=== PATIENT | female | born 1935 | race Caucasian/White ===

== ENCOUNTER 2020-07-28 12:20 | Inpatient (IN) | payer BC, OTHER ==
[2020-07-28] MEDS ORDERED: FAMOTIDINE 20 MG/50 ML IVPB 20 MG/50 ML MG IVPB ONE ×2 (13:12→13:46)
[2020-07-28] MEDS ORDERED: ONDANSETRON 4 MG/2 ML VIAL IVPUSH ONE (13:12)
[2020-07-28] MEDS ORDERED: ACETAMINOPHEN 1000 MG/100 ML VIAL (NON FORMULARY) IVPB ONE (13:13)
[2020-07-28] MEDS ORDERED: SODIUM CHLORIDE 0.9% 500 ML INFUS.BAG IV ONE (13:21)
[2020-07-28] MEDS ORDERED: DEXAMETHASONE SOD PHOSPHATE 10 MG/1 ML VIAL IVPUSH ONE (13:21)
[2020-07-28] MEDS ORDERED: ONDANSETRON 4 MG/2 ML VIAL ONE (13:46)
[2020-07-28] MEDS ORDERED: ACETAMINOPHEN INJECTION 100 ML IVPB ONE (13:46)
[2020-07-28] MEDS ORDERED: DEXAMETHASONE SOD PHOSPHATE 10 MG/1 ML VIAL ONE (13:46)
[2020-07-28 14:03] LABS: BASO % 0.4 % (0-2.0); HEMATOCRIT 36.8 % (32.4-45.2); HEMOGLOBIN 12.7 GM/dL (10.7-15.3); LYMPH % 15.9 % (8-40); MCH 29.9 pg (25.7-33.7); MCHC 34.5 g/dl (32.0-36.0); MEAN CELL VOLUME 86.8 fl (80-96); MEAN PLT VOLUME 8.5 fl (7.5-11.1); MONO % 10.8 % (3.8-10.2); NEUT % 72.9 % (42.8-82.8); PLATELET COUNT 156 K/MM3 (134-434); RBC 4.24 M/mm3 (3.60-5.2); RDW 13.8 % (11.6-15.6); WHITE BLOOD COUNT 3.6 K/mm3 (4.0-10.0)
[2020-07-28 14:08] LABS: VENOUS O2 SATURATION 34.3 % (70-80); VENOUS PCO2 38.8 mmHg (38-52); VENOUS PH 7.416 (7.310-7.410)
[2020-07-28 14:26] LABS: CHLORIDE 104 mmol/L (98-107); POTASSIUM 3.3 mmol/L (3.5-5.1); SODIUM 140 mmol/L (136-145)
[2020-07-28 14:27] LABS: INR 1.27 (0.83-1.09); PROTHROMBIN TIME (PATIENT) 15.5 SEC (9.7-13.0)
[2020-07-28 14:28] LABS: ACTIVATED PTT 31.3 SECONDS (25.2-36.5); CALCIUM 8.4 mg/dL (8.5-10.1)
[2020-07-28 14:29] LABS: ALBUMIN 3.5 g/dl (3.4-5.0); ANION GAP 11 MMOL/L (8-16); BLOOD UREA NITROGEN 17.5 mg/dL (7-18); CO2 25 mmol/L (21-32); GLUCOSE,RANDOM 99 mg/dL (74-106)
[2020-07-28 14:32] LABS: BILIRUBIN,DIRECT 0.2 mg/dL (0.0-0.2); CREATININE 0.9 mg/dL (0.55-1.3); SGOT/AST 26 U/L (15-37); SGPT/ALT 26 U/L (13-61)
[2020-07-28 14:33] LABS: BILIRUBIN,TOTAL 0.6 mg/dL (0.2-1); LDH 207 U/L (84-246); TOT PROT 6.6 g/dl (6.4-8.2)
[2020-07-28 14:35] LABS: ALK PHOS 58 U/L (45-117)
[2020-07-28] MEDS ORDERED: METOCLOPRAMIDE HCL INJECTION 10 MG/2 ML VIAL IVPB ONE (14:52)
[2020-07-28] MEDS ORDERED: POTASSIUM CHLORIDE ORAL LIQUID 20 MEQ/15 ML PO ONE (14:52)
[2020-07-28] MEDS ORDERED: METOCLOPRAMIDE HCL INJECTION 10 MG/2 ML VIAL ONE (14:55)
[2020-07-28 14:56] LABS: MAGNESIUM 1.9 mg/dL (1.8-2.4)
[2020-07-28] MEDS ORDERED: POTASSIUM CHLORIDE ORAL LIQUID 20 MEQ/15 ML ONE (14:56)
[2020-07-28 15:46] LABS: EPI CELLS >36 /uL (0-25.1); HYALINE CASTS 16 /uL (0-3.1); PH,URINE 5.5 (5.0-8.0); URINE APPEARANCE CLOUDY; URINE BACTERIA 1550 /uL (0-1359); URINE BILIRUBIN NEGATIVE (NEGATIVE); URINE COLOR DK YELLOW; URINE GLUCOSE (UA) NEGATIVE (NEGATIVE); URINE KETONE NEGATIVE (NEGATIVE); URINE LEUK ESTERASE 2+ (NEGATIVE); URINE NITRITE NEGATIVE (NEGATIVE); URINE PROTEIN 2+ (NEGATIVE); URINE RBC 32 /uL (0-23.9); URINE WBC 257 /uL (0-25.8)
[2020-07-28] MEDS ORDERED: ONDANSETRON 4 MG/2 ML VIAL IVPUSH PRN (22:04)
[2020-07-28] MEDS ORDERED: SODIUM CHLORIDE 0.9%/KCL 20 MEQ/1,000 ML INFUS.BAG IV SCH (22:15)
[2020-07-28] MEDS ORDERED: APIXABAN 2.5 MG TABLET ONE (22:16)
[2020-07-28] MEDS: APIXABAN 2.5 MG TABLET PO SCH (22:25)
[2020-07-29] MEDS ORDERED: ACETAMINOPHEN 325 MG TABLET (FP) PO PRN (08:58)
[2020-07-29 09:18] LABS: BASO % 0.2 % (0-2.0); HEMOGLOBIN 12.7 GM/dL (10.7-15.3); LYMPH % 17.5 % (8-40); MCH 30.3 pg (25.7-33.7); MCHC 34.3 g/dl (32.0-36.0); MEAN CELL VOLUME 88.4 fl (80-96); MEAN PLT VOLUME 8.9 fl (7.5-11.1); MONO % 15.8 % (3.8-10.2); NEUT % 66.5 % (42.8-82.8); PLATELET COUNT 144 K/MM3 (134-434); RBC 4.19 M/mm3 (3.60-5.2); RDW 13.7 % (11.6-15.6); WHITE BLOOD COUNT 2.6 K/mm3 (4.0-10.0)
[2020-07-29 09:25] LABS: POTASSIUM 3.7 mmol/L (3.5-5.1)
[2020-07-29 09:35] LABS: ALBUMIN 3.2 g/dl (3.4-5.0); BLOOD UREA NITROGEN 14.5 mg/dL (7-18); CALCIUM 8.1 mg/dL (8.5-10.1)
[2020-07-29 09:36] LABS: MAGNESIUM 2.1 mg/dL (1.8-2.4)
[2020-07-29 09:37] LABS: BILIRUBIN,TOTAL 0.7 mg/dL (0.2-1)
[2020-07-29 09:38] LABS: CREATININE 0.8 mg/dL (0.55-1.3)
[2020-07-29 09:39] LABS: TOT PROT 6.4 g/dl (6.4-8.2)
[2020-07-29] MEDS: APIXABAN 2.5 MG TABLET PO SCH ×2 (10:40→22:15)
[2020-07-29] MEDS: metoPROLOL SUCCINATE 25 MG TAB.SR.24H (FP) PO SCH (10:40)
[2020-07-29] MEDS: DEXAMETHASONE SOD PHOSPHATE 4 MG/1 ML VIAL IVPUSH SCH (10:40)
[2020-07-29] MEDS ORDERED: REMDESIVIR 200 MG in SODIUM CHLORIDE 210 ML IVPB ONE (16:00)
[2020-07-29] MEDS: FAMOTIDINE 20 MG/50 ML IVPB 20 MG/50 ML MG IVPB SCH (22:15)
[2020-07-29] MEDS: ATORVASTATIN CA 10 MG TABLET (FP) PO SCH (22:15)
[2020-07-30] MEDS: ACETAMINOPHEN 325 MG TABLET (FP) PO PRN (04:45)
[2020-07-30 09:20] LABS: BASO % 0.1 % (0-2.0); HEMATOCRIT 38.5 % (32.4-45.2); HEMOGLOBIN 13.3 GM/dL (10.7-15.3); LYMPH % 12.8 % (8-40); MCH 30.5 pg (25.7-33.7); MCHC 34.6 g/dl (32.0-36.0); MEAN CELL VOLUME 88.2 fl (80-96); MEAN PLT VOLUME 8.8 fl (7.5-11.1); NEUT % 81.1 % (42.8-82.8); PLATELET COUNT 185 K/MM3 (134-434); RBC 4.36 M/mm3 (3.60-5.2); RDW 14.1 % (11.6-15.6); WHITE BLOOD COUNT 8.6 K/mm3 (4.0-10.0)
[2020-07-30 09:31] LABS: POTASSIUM 3.5 mmol/L (3.5-5.1)
[2020-07-30 09:33] LABS: CALCIUM 8.6 mg/dL (8.5-10.1)
[2020-07-30 09:34] LABS: ALBUMIN 3.5 g/dl (3.4-5.0); BLOOD UREA NITROGEN 24.4 mg/dL (7-18)
[2020-07-30 09:38] LABS: BILIRUBIN,TOTAL 0.5 mg/dL (0.2-1); TOT PROT 6.6 g/dl (6.4-8.2)
[2020-07-30 09:41] LABS: PHOSPHOROUS 2.6 mg/dL (2.5-4.9)
[2020-07-30] MEDS: FAMOTIDINE 20 MG/50 ML IVPB 20 MG/50 ML MG IVPB SCH ×2 (10:52→21:10)
[2020-07-30] MEDS: DEXAMETHASONE SOD PHOSPHATE 4 MG/1 ML VIAL IVPUSH SCH (10:54)
[2020-07-30] MEDS: metoPROLOL SUCCINATE 25 MG TAB.SR.24H (FP) PO SCH (10:55)
[2020-07-30] MEDS: APIXABAN 2.5 MG TABLET PO SCH ×2 (10:55→21:22)
[2020-07-30] MEDS: REMDESIVIR 100 MG in SODIUM CHLORIDE 230 ML IVPB SCH (18:11)
[2020-07-30] MEDS ORDERED: cefTRIAXone SODIUM 1 GM VIAL ONE (20:37)
[2020-07-30] MEDS ORDERED: DEXTROSE 5%-WATER - 50 ML IVPB ONE (20:37)
[2020-07-30] MEDS: CEFTRIAXONE 1 GM in DEXTROSE 5%-WATER - 50 ML IVPB SCH (20:40)
[2020-07-30] MEDS: ATORVASTATIN CA 10 MG TABLET (FP) PO SCH (21:22)
[2020-07-31 09:40] LABS: POTASSIUM 3.6 mmol/L (3.5-5.1)
[2020-07-31 09:54] LABS: CALCIUM 7.8 mg/dL (8.5-10.1)
[2020-07-31 09:55] LABS: ALBUMIN 2.7 g/dl (3.4-5.0); BLOOD UREA NITROGEN 21.9 mg/dL (7-18)
[2020-07-31 09:57] LABS: BILIRUBIN,TOTAL 0.5 mg/dL (0.2-1)
[2020-07-31 09:58] LABS: CREATININE 0.7 mg/dL (0.55-1.3); TOT PROT 5.5 g/dl (6.4-8.2)
[2020-07-31] MEDS ORDERED: cefTRIAXone SODIUM 1 GM VIAL ONE (10:53)
[2020-07-31] MEDS ORDERED: DEXTROSE 5%-WATER - 50 ML IVPB ONE (10:53)
[2020-07-31] MEDS: APIXABAN 2.5 MG TABLET PO SCH ×2 (10:57→21:06)
[2020-07-31] MEDS: metoPROLOL SUCCINATE 25 MG TAB.SR.24H (FP) PO SCH (10:57)
[2020-07-31] MEDS: FAMOTIDINE 20 MG/50 ML IVPB 20 MG/50 ML MG IVPB SCH ×2 (10:58→21:06)
[2020-07-31] MEDS: CEFTRIAXONE 1 GM in DEXTROSE 5%-WATER - 50 ML IVPB SCH (10:58)
[2020-07-31] MEDS: DEXAMETHASONE SOD PHOSPHATE 4 MG/1 ML VIAL IVPUSH SCH (11:05)
[2020-07-31] MEDS: ACETAMINOPHEN 325 MG TABLET (FP) PO PRN (11:09)
[2020-07-31 16:40] VITALS: BMI 19.5
[2020-07-31] MEDS: REMDESIVIR 100 MG in SODIUM CHLORIDE 230 ML IVPB SCH (17:57)
[2020-07-31] MEDS: ATORVASTATIN CA 10 MG TABLET (FP) PO SCH (21:06)
[2020-08-01] MEDS ORDERED: cefTRIAXone SODIUM 1 GM VIAL ONE (09:23)
[2020-08-01] MEDS ORDERED: DEXTROSE 5%-WATER - 50 ML IVPB ONE (09:23)
[2020-08-01] MEDS: APIXABAN 2.5 MG TABLET PO SCH ×2 (09:59→21:41)
[2020-08-01] MEDS: DEXAMETHASONE SOD PHOSPHATE 4 MG/1 ML VIAL IVPUSH SCH (09:59)
[2020-08-01] MEDS: metoPROLOL SUCCINATE 25 MG TAB.SR.24H (FP) PO SCH (10:00)
[2020-08-01] MEDS: CEFTRIAXONE 1 GM in DEXTROSE 5%-WATER - 50 ML IVPB SCH (10:00)
[2020-08-01] MEDS: PANTOPRAZOLE 20 MG TABLET PO SCH (10:00)
[2020-08-01] MEDS: FAMOTIDINE 20 MG/50 ML IVPB 20 MG/50 ML MG IVPB SCH ×2 (11:08→21:41)
[2020-08-01] MEDS: REMDESIVIR 100 MG in SODIUM CHLORIDE 230 ML IVPB SCH (15:36)
[2020-08-01] MEDS: ATORVASTATIN CA 10 MG TABLET (FP) PO SCH (21:41)
[2020-08-02] MEDS ORDERED: cefTRIAXone SODIUM 1 GM VIAL ONE (09:59)
[2020-08-02] MEDS ORDERED: DEXTROSE 5%-WATER - 50 ML IVPB ONE (09:59)
[2020-08-02] MEDS: PANTOPRAZOLE 20 MG TABLET PO SCH (10:14)
[2020-08-02] MEDS: CEFTRIAXONE 1 GM in DEXTROSE 5%-WATER - 50 ML IVPB SCH (10:14)
[2020-08-02] MEDS: metoPROLOL SUCCINATE 25 MG TAB.SR.24H (FP) PO SCH (10:14)
[2020-08-02] MEDS: APIXABAN 2.5 MG TABLET PO SCH ×2 (10:14→21:27)
[2020-08-02] MEDS: DEXAMETHASONE SOD PHOSPHATE 4 MG/1 ML VIAL IVPUSH SCH (10:14)
[2020-08-02] MEDS: FAMOTIDINE 20 MG/50 ML IVPB 20 MG/50 ML MG IVPB SCH ×2 (12:55→21:27)
[2020-08-02] MEDS: REMDESIVIR 100 MG in SODIUM CHLORIDE 230 ML IVPB SCH (16:02)
[2020-08-02] MEDS: ATORVASTATIN CA 10 MG TABLET (FP) PO SCH (21:27)
[2020-08-03] MEDS ORDERED: cefTRIAXone SODIUM 1 GM VIAL ONE (10:16)
[2020-08-03] MEDS ORDERED: DEXTROSE 5%-WATER - 50 ML IVPB ONE (10:16)
[2020-08-03] MEDS: metoPROLOL SUCCINATE 25 MG TAB.SR.24H (FP) PO SCH (10:21)
[2020-08-03] MEDS: PANTOPRAZOLE 20 MG TABLET PO SCH (10:21)
[2020-08-03] MEDS: CEFTRIAXONE 1 GM in DEXTROSE 5%-WATER - 50 ML IVPB SCH (10:21)
[2020-08-03] MEDS: APIXABAN 2.5 MG TABLET PO SCH (10:21)
[2020-08-03] MEDS: DEXAMETHASONE SOD PHOSPHATE 4 MG/1 ML VIAL IVPUSH SCH (10:21)
[2020-08-03] MEDS: FAMOTIDINE 20 MG/50 ML IVPB 20 MG/50 ML MG IVPB SCH (12:32)
[2020-08-03 14:26] VITALS: BP 128/64; PULSE 63; TEMP 98.7
== END 2020-08-03 18:12 | disposition home health service (06) | DRG 177 ==
LOC: JER 12:20 → JERBED 14:57 → J6S 23:38
PROVIDERS: ADMIT Internal Medicine; ATTEND Internal Medicine
PROC: XW033E5 Introduction of Remdesivir Anti-infective into Peripheral Vein, Percutaneous Approach, New Technology Group 5 (ICD-10-PCS; 2020-07-29)
PROC: XW13325 Transfusion of Convalescent Plasma (Nonautologous) into Peripheral Vein, Percutaneous Approach, New Technology Group 5 (ICD-10-PCS; principal; 2020-07-31)
DX: U07.1 COVID-19 (principal); J12.82 Pneumonia due to coronavirus disease 2019; A08.39 Other viral enteritis; I48.91 Unspecified atrial fibrillation; E78.5 Hyperlipidemia, unspecified; E87.6 Hypokalemia; I25.10 Atherosclerotic heart disease of native coronary artery without angina pectoris; K21.9 Gastro-esophageal reflux disease without esophagitis; G47.00 Insomnia, unspecified; M85.80 Other specified disorders of bone density and structure, unspecified site; E04.1 Nontoxic single thyroid nodule; M41.9 Scoliosis, unspecified; I48.0 Paroxysmal atrial fibrillation; R09.02 Hypoxemia; Z79.01 Long term (current) use of anticoagulants
CPT/HCPCS: 36415; 36430; 71045-TC-FY; 80053; 81003; 82248; 82550; 82728; 82803; 83605; 83615; 83735; 84100; 84484; 85025; 85379; 85610; 85730; 86140; 86850; 86900; 86901; 87040; 87086; 87186; 87804; 93005; 93010; 93306-TC; 94010; 94761; 99285-25; C9399; C9803; J0131; J1100; P9017; U0003

== ENCOUNTER 2023-01-29 18:39 | Observation (INO) | payer BC, OTHER ==
[2023-01-29 18:46] VITALS: BMI 25.2
[2023-01-29 20:58] LABS: BASO % 0.5 % (0-2.0); EOS % 1.2 % (0-4.5); HEMATOCRIT 39.8 % (32.4-45.2); HEMOGLOBIN 13.8 GM/dL (10.7-15.3); LYMPH % 29.3 % (8-40); MCH 29.9 pg (25.7-33.7); MCHC 34.6 g/dl (32.0-36.0); MEAN CELL VOLUME 86.4 fl (80-96); MEAN PLT VOLUME 8.3 fl (7.5-11.1); MONO % 7.6 % (3.8-10.2); NEUT % 61.4 % (42.8-82.8); PLATELET COUNT 218 10^3/uL (134-434); RDW 14.3 % (11.6-15.6)
[2023-01-29 21:05] LABS: INR 1.19 (0.83-1.09); POTASSIUM 4.1 mmol/L (3.5-5.1); PROTHROMBIN TIME (PATIENT) 13.8 SEC (9.7-13.0)
[2023-01-29 21:07] LABS: ACTIVATED PTT 34.6 SECONDS (25.2-36.5); BLOOD UREA NITROGEN 15.3 mg/dL (7-18); CALCIUM 9.3 mg/dL (8.5-10.1)
[2023-01-29 21:08] LABS: ALBUMIN 3.8 g/dl (3.4-5.0)
[2023-01-29 21:11] LABS: CREATININE 0.8 mg/dL (0.55-1.3)
[2023-01-29 21:13] LABS: BILIRUBIN,TOTAL 0.6 mg/dL (0.2-1); TOT PROT 6.9 g/dl (6.4-8.2)
[2023-01-29] MEDS ORDERED: morphine CARPU-JECT 2 MG/1 ML DISP.SYRIN IVPUSH ONE (21:20)
[2023-01-29] MEDS ORDERED: LIDOCAINE 5% TOPICAL PATCH TP ONE (22:53)
[2023-01-29] MEDS ORDERED: LIDOCAINE 5% TOPICAL PATCH ONE (22:58)
[2023-01-29] MEDS ORDERED: APIXABAN 2.5 MG TABLET ONE (23:59)
[2023-01-30] MEDS: APIXABAN 2.5 MG TABLET PO SCH ×3 (00:02→21:31)
[2023-01-30] MEDS ORDERED: ACETAMINOPHEN 325 MG TABLET (FP) ONE ×2 (01:24→10:36)
[2023-01-30] MEDS: ACETAMINOPHEN 325 MG TABLET (FP) PO PRN ×3 (01:29→16:08)
[2023-01-30 07:01] LABS: BASO % 0.5 % (0-2.0); EOS % 1.5 % (0-4.5); HEMATOCRIT 41.1 % (32.4-45.2); HEMOGLOBIN 13.7 GM/dL (10.7-15.3); LYMPH % 29.1 % (8-40); MCH 29.4 pg (25.7-33.7); MCHC 33.3 g/dl (32.0-36.0); MEAN CELL VOLUME 88.2 fl (80-96); MEAN PLT VOLUME 8.8 fl (7.5-11.1); MONO % 7.6 % (3.8-10.2); NEUT % 61.3 % (42.8-82.8); PLATELET COUNT 204 10^3/uL (134-434); RBC 4.66 M/mm3 (3.60-5.2); RDW 13.8 % (11.6-15.6); WHITE BLOOD COUNT 7.1 K/mm3 (4.0-10.0)
[2023-01-30 07:18] LABS: POTASSIUM 3.9 mmol/L (3.5-5.1)
[2023-01-30 07:23] LABS: BLOOD UREA NITROGEN 11.6 mg/dL (7-18)
[2023-01-30 07:27] LABS: CREATININE 0.7 mg/dL (0.55-1.3)
[2023-01-30] MEDS: PANTOPRAZOLE 20 MG TABLET PO SCH (09:19)
[2023-01-30 17:55] VITALS: RESP 16
[2023-01-30] MEDS: LIDOCAINE 5% TOPICAL PATCH TP SCH (18:05)
[2023-01-30 19:34] LABS: POTASSIUM 4.5 mmol/L (3.5-5.1)
[2023-01-30 19:36] LABS: BLOOD UREA NITROGEN 12.7 mg/dL (7-18); CALCIUM 9.3 mg/dL (8.5-10.1)
[2023-01-30 19:40] LABS: CREATININE 0.7 mg/dL (0.55-1.3)
[2023-01-30 21:40] LABS: N-TERMINAL BNP 64.5 pg/ml (5-450)
[2023-01-30] MEDS ORDERED: ATORVASTATIN CA 10 MG TABLET (FP) PO SCH (22:00)
[2023-01-30] MEDS ORDERED: LIDOCAINE PATCH REMOVAL MC ONE (22:00)
[2023-01-30] MEDS ORDERED: LIDOCAINE PATCH REMOVAL MC SCH (22:00)
[2023-01-31] MEDS: APIXABAN 2.5 MG TABLET PO SCH (10:07)
[2023-01-31] MEDS: PANTOPRAZOLE 20 MG TABLET PO SCH (10:07)
[2023-01-31] MEDS: LIDOCAINE 5% TOPICAL PATCH TP SCH (10:08)
[2023-01-31 11:54] LABS: EPI CELLS >36 /uL (0-25.1); HYALINE CASTS 1 /uL (0-3.1); PH,URINE 6.5 (5.0-8.0); URINE APPEARANCE CLEAR; URINE BACTERIA 108 /uL (0-1359); URINE BILIRUBIN NEGATIVE (NEGATIVE); URINE COLOR YELLOW; URINE GLUCOSE (UA) NEGATIVE (NEGATIVE); URINE KETONE NEGATIVE (NEGATIVE); URINE LEUK ESTERASE 2+ (NEGATIVE); URINE NITRITE NEGATIVE (NEGATIVE); URINE PROTEIN NEGATIVE (NEGATIVE); URINE RBC 10 /uL (0-23.9); URINE UROBILINOGEN 0.2 mg/dL (0.2-1.0); URINE WBC 74 /uL (0-25.8)
[2023-01-31] MEDS ORDERED: AMOXICILLIN 500 MG CAPSULE (FP) PO SCH (14:00)
[2023-01-31 14:39] VITALS: BP 133/68; PULSE 85; TEMP 98.1
== END 2023-01-31 16:38 | disposition home or self-care (01) ==
LOC: JER 18:39 → INTOOBSV 23:47 → JERBED 23:47 → J8W 01-30 15:54
PROVIDERS: ADMIT Specialist; ATTEND Specialist
PROC: 3E033NZ Introduction of Analgesics, Hypnotics, Sedatives into Peripheral Vein, Percutaneous Approach (ICD-10-PCS; principal; 2023-01-29)
DX: S09.90XA Unspecified injury of head, initial encounter (principal); W22.01XA Walked into wall, initial encounter; Y93.89 Activity, other specified; Y92.89 Other specified places as the place of occurrence of the external cause; Z79.01 Long term (current) use of anticoagulants; S90.31XA Contusion of right foot, initial encounter; I48.91 Unspecified atrial fibrillation; Z86.16 Personal history of COVID-19; M79.10 Myalgia, unspecified site; K21.9 Gastro-esophageal reflux disease without esophagitis; Z87.440 Personal history of urinary (tract) infections; F41.9 Anxiety disorder, unspecified; I10 Essential (primary) hypertension; E78.5 Hyperlipidemia, unspecified; R01.1 Cardiac murmur, unspecified
CPT/HCPCS: 36415; 70450-TC; 71250-TC; 72125-TC; 73610-TC-RT-FY; 73630-TC-RT-FY; 74176-TC; 76604; 76705-TC; 80048; 80053; 80061; 81003; 82550; 83036; 83880; 84443; 84484; 85025; 85610; 85730; 86850; 86900; 86901; 87086; 93005; 93010; 93308; 96374; 99285-25; G0378